=== PATIENT | male | born 1960 | race Hispanic/Latino ===

== ENCOUNTER → 2020-11-27 | Day surgery (SDC) | payer OTHER ==
[~2020-11-27] MED LIST: CHONDR SU A NA/HYALUR SOD 1 EACH KIT IO ONE; INHALER INH; METOPROLOL SUCC50 MG PO; OR PHACO EYE KIT ONE; PREOP PHACO EYE KIT ONE
[2020-11-27 14:45] VITALS: BP 132/95
== END | disposition home or self-care (01) ==
LOC: OR 15:30
PROVIDERS: ATTEND Ophthalmology
DX: H25.12 Age-related nuclear cataract, left eye (principal); J44.9 Chronic obstructive pulmonary disease, unspecified; I10 Essential (primary) hypertension; Z01.812 Encounter for preprocedural laboratory examination; Z20.822 Contact with and (suspected) exposure to COVID-19; Z86.711 Personal history of pulmonary embolism
CPT/HCPCS: 66984; U0002

== ENCOUNTER → 2020-12-11 | Day surgery (SDC) | payer OTHER ==
[~2020-12-11] MED LIST changes: -CHONDR SU A NA/HYALUR SOD 1 EACH KIT IO ONE; +FENTANYL CITRATE/PF 100MCG/2 ML INJ ONE; +MIDAZOLAM HCL 2 MG/2 ML VIAL ONE
[2020-12-11 16:10] VITALS: BP 134/98
== END | disposition home or self-care (01) ==
LOC: OR 13:24
PROVIDERS: ATTEND Ophthalmology
DX: H25.11 Age-related nuclear cataract, right eye (principal); J44.9 Chronic obstructive pulmonary disease, unspecified; I10 Essential (primary) hypertension; Z01.812 Encounter for preprocedural laboratory examination; Z20.822 Contact with and (suspected) exposure to COVID-19
CPT/HCPCS: 66984; J2250; J3010; U0002